=== PATIENT | female | born 1980 | race African-American/Black ===

== ENCOUNTER 2024-06-24 12:48 | Emergency (ER) | payer OTHER ==
[~2024-06-24] VITALS: Ht 160 cm; Wt 79.9 kg
[2024-06-24 12:55] VITALS: PULSE 70; RESP 18; TEMP 98.2; O2SAT 100
[2024-06-24] MEDS: IBUPROFEN 600 MG TAB PO ONE (13:21)
== END 2024-06-24 14:00 | disposition home or self-care (01) ==
LOC: FSED 12:53
DX: M25.572 Pain in left ankle and joints of left foot (principal); W22.09XA Striking against other stationary object, initial encounter; Y99.0 Civilian activity done for income or pay
CPT/HCPCS: 99284